=== PATIENT | female | born 1985 | race Caucasian/White ===

== ENCOUNTER → 2019-01-22 | Outpatient (CLI) | payer OTHER ==
--- NOTE | 2019-01-22 13:02 | EKG ---
FACILITY: [facility] PATIENT NAME: TJ BOYKIN : [id number] MR: [id number] V: [id number] EXAM DATE: ORDERING PHYSICIAN: KALEB PRADO TECHNOLOGIST: REJI Davila Reason : SYNCOPE Blood Pressure : / mmHG Vent. Rate : 068 BPM Atrial Rate : 068 BPM P-R Int : 122 ms QRS Dur : 094 ms QT Int : 382 ms P-R-T Axes : 051 055 047 degrees QTc Int : 406 ms Normal sinus rhythm Normal ECG No previous ECGs available Confirmed by SHILPA TEJEDA ([id number]) on 01/22/2019 6:50:56 PM Referred By: JOHAN Confirmed By:SHILPA TEJEDA
== END ==
LOC: RESP 12:37
PROVIDERS: ATTEND Physician Assistant
DX: R55 Syncope and collapse (principal)
CPT/HCPCS: 93005

== ENCOUNTER → 2019-02-25 | Outpatient (REF) | payer OTHER ==
[2019-02-25 16:16] LABS: PLATELET COUNT, AUTOMATED 523 K/uL (150-450)
== END ==
LOC: ZZSENDIN 15:13
PROVIDERS: ATTEND Internal Medicine Medical Oncology
DX: D47.3 Essential (hemorrhagic) thrombocythemia (principal)
CPT/HCPCS: 82040; 82247; 82310; 82374; 82435; 82565; 82668; 82728; 82947; 83540; 83550; 84075; 84132; 84155; 84295; 84450; 84460; 84520; 85025; 85651; 86140

== ENCOUNTER 2019-03-18 11:54 | Outpatient (RCR) | payer OTHER ==
[2019-02-20 16:01] VITALS: BP 132/88
--- NOTE | 2019-03-06 04:50 | ONCOLOGY CONSULTATION ---
EVENT DATE: February 20, 2019 REFERRING PROVIDER Pat Sepulveda PA-C REASON FOR CONSULTATION Concern for elevated white blood cell count, hematocrit, and platelet count. CHIEF COMPLAINT Fatigue, headaches. HISTORY OF PRESENT ILLNESS Natasha is a very pleasant 33-year-old female with a history of migraine headaches. She has been referred to my clinic by Ms. Sepulveda due to recent concern for laboratory abnormalities. She relates a long history of migraine headaches, for which she had taken propranolol. She had experienced an episode of syncope thereafter, as well as several other episodes of near syncope. She is no longer taking the medication. She denies fever. She has had no shortness of breath, chest pain, or cough. She has had a fair appetite, and her weight has been generally stable. She denies abdominal pain, nausea, and recent changes in bowel or bladder habits. She has had no abnormal bruising or bleeding. Natasha is here to discuss the implications of her laboratory findings. REVIEW OF SYSTEMS Otherwise negative in all systems reviewed. PAST MEDICAL HISTORY 1. Migraine headache. 2. Seasonal allergies. 3. History of cold sores. CURRENT MEDICATIONS Per med list provided, include: 1. Flonase. 2. Ketorolac. 3. Valacyclovir. 4. Vistaril. 5. Mirena IUD. ALLERGIES No known drug allergies, per medical record, but recent experience with PROPRANOLOL was enough to consider it unusable. SOCIAL HISTORY Patient is a nonsmoker. There is no history of alcohol or drug abuse. FAMILY HISTORY Noncontributory. PHYSICAL EXAMINATION VITAL SIGNS: Temperature is 97.8, blood pressure 132/88, heart rate 81, respirations 16, oxygen saturation 94% on room air. Weight is 78.1 kg. GENERAL: Patient is alert and oriented x3, in no apparent distress, sitting in the exam room chair. She appears quite healthy. She is interactive and pleasant. HEENT: Anicteric sclerae. NEUROLOGIC: Grossly nonfocal. Her gait is normal. SKIN: No concerning rash or lesion. EXTREMITIES: No edema, clubbing, cyanosis, or erythema. LABORATORY STUDIES Reviewed per outside lab from January 29. These reveal a white blood cell count of 13,200, hemoglobin 16.1, hematocrit 47.0, and platelet count of 503,000. Prior CBC results revealed similar findings, with a white blood cell count of 11,400, hemoglobin 15.7, hematocrit 46.6, and platelet count 502,000. Neutrophil predominance was noted on both specimens, as well as slight elevation in monocytes and eosinophils. IMAGING None today. ASSESSMENT AND PLAN 1. Neutrophilia, modest. I had a very good visit with Natasha today. We spent time reviewing her symptoms, mostly of ongoing issues with migraine headaches, which have been a chronic problem. We reviewed her recent laboratory studies together, and they do reveal a slight neutrophilia, polycythemia, and thrombocytosis. We discussed the possibilities for these findings. In terms of her neutrophilia, she does have a slight elevation in neutrophils, as well as eosinophils and monocytes. As discussed, this could be purely reactive findings, but it will be important to rule out an underlying myeloproliferative disorder. I have recommended further workup with peripheral blood for repeat CBC, comprehensive metabolic panel, iron studies including ferritin, and C- reactive protein. We will also draw peripheral blood for BCR-ABL evaluation by FISH, as well as JAK2 mutation. 2. Polycythemia, modest. We also discussed this finding as either a primary or secondary abnormality. As above, we will evaluate for an underlying myeloproliferative disorder. She could have a modest elevation in her hemoglobin due to elevation. She does not smoke cigarettes. At this point, I would not recommend urgent therapeutic phlebotomy, but we will follow up to review her additional laboratory studies to determine next steps. 3. Thrombocytosis. We also reviewed this as either a reactive or primary process. Iron studies will be helpful to evaluate for nutritional deficiency, although this seems unlikely. C-reactive protein will be helpful to look for underlying systemic inflammation that can also raise the platelet count. Likewise, there is enough concern for an underlying myeloproliferative disorder that JAK2 mutation could potentially be helpful in this regard, as well. I spent time today reviewing the pertinence of these tests, and Natasha agrees to go to the lab for blood to be drawn. I will plan to see her back in clinic for followup the next time I am in [place]. All questions answered today. Thank you very much, Terrell Coco, for allowing me the opportunity to visit with Ms. Isabel. Please do not hesitate to call with any questions or concerns. I spent a total of 50 minutes of time face to face with the patient today, and 45 minutes of this was spent in direct counseling and coordination of care. IRAM
[~2019-03-18] VITALS: Ht 165 cm; Wt 76.8 kg
[2019-03-18 11:58] VITALS: BP 141/87
[2019-03-18] MEDS ORDERED: CETI10CA8 PO (12:02)
[2019-03-18] MEDS ORDERED: KET10 PO (12:02)
[2019-03-18 12:45] LABS: PLATELET COUNT, AUTOMATED 475 K/uL (150-450)
--- NOTE | 2019-03-19 14:28 | [facility] ONCOLOGY NOTE ---
EVENT DATE: March 18, 2019 CHIEF COMPLAINT/REASON FOR VISIT Ms. Isabel is a pleasant 33-year old female with known severe migraines that presented with an elevated white blood cell count, hematocrit and platelet count. HISTORY OF PRESENT ILLNESS Natasha returns. She had evidence of inflammation based on her labs from late January as well as labs from early January. Dr. South did extensive laboratory evaluations including BCR-ABL and JAK2 mutation studies. Thankfully, both of these were negative. All other studies including erythropoietin levels, liver evaluation, kidney evaluation, etc. were all normal. I am concerned that this is reactive due to inflammation. We did not yet get imaging of the liver to see if she has a hereditary fatty liver but did discuss diet and exercise changes that would help with this regardless. Overall, she is feeling better. No fever, chills, shortness of breath, concerning lumps or bumps, issues with infection. She continues to struggle with the migraines. We discussed supplements that may help with migraines including magnesium, vitamin B6 and [place]. PAST MEDICAL HISTORY 1. Migraine headache. 2. Seasonal allergies. 3. History of cold sores. CURRENT MEDICATIONS Per med list provided, include: 1. Flonase. 2. Ketorolac. 3. Valacyclovir. 4. Vistaril. 5. Mirena IUD. REVIEW OF SYSTEMS CONSTITUTIONAL: No fever, chills, significant weight change. HEENT: No headaches or vision changes other than her usual migraine headaches but no headache today. CARDIOVASCULAR: No chest pain, dyspnea on exertion or edema RESPIRATORY: No shortness of breath, wheeze or cough. GI: No nausea, vomiting, diarrhea or constipation. : No dysuria or hematuria. MUSCULOSKELETAL; No weakness or joint pain. PSYCHIATRIC: No anxiety or depression. ENDOCRINE: No heat or cold intolerance. SKIN: No concerning rash or lesions. Remainder of exam otherwise unremarkable. IMPRESSION/REPORT/PLAN Ms. Isabel is a very pleasant 33-year old female with the followin. Mild neutrophilia. 2. Mild erythrocytosis, secondary. 3. Mild thrombocytosis. 4. Severe migraines. I am worried that her lab abnormalities noted above are related to inflammation. We discussed the Mediterranean diet and anti-inflammatory diet. We also discussed the importance of exercise and I stressed it would be useful if she exercised 30 minutes a day 5 days a week to reduce inflammation. Diet and exercise changes would likely bring her blood counts down. If it is related to her migraines, which I think is very likely, we would need to do everything we can to improve those as well. Nothing in her labs is harmful, though, in terms of the CBC. No issues with infection, thankfully I would like to follow this to make sure this improves and we will repeat labs today and again later in the year. I spent an extensive amount of time researching the patient's chart and establishing care with the patient as my colleague, Dr. South, has been on vacation for three weeks and was unable to do the followup for her today. She can follow up with me or Dr. South at the future visits when we are both back in the office. I answered all of her many questions today. BILLING Return visit level 5. Total time 45 minutes, counseling and coordination of care time 25 minutes. IRAM
== END 2019-04-01 14:52 | disposition home or self-care (01) ==
LOC: ONC 11:54
PROVIDERS: ATTEND Internal Medicine Medical Oncology
DX: D72.828 Other elevated white blood cell count (principal); D75.1 Secondary polycythemia; D47.3 Essential (hemorrhagic) thrombocythemia
CPT/HCPCS: 85025; 99202; 99212